=== PATIENT | female | born 1990 | race Caucasian/White ===

== ENCOUNTER 2018-02-04 09:11 | Day surgery (SDC) | payer OTHER ==
[2018-02-04 10:16] LABS: POTASSIUM 6.3 mmol/L (3.5-5.1)
[2018-02-04] MEDS ORDERED: FENTAnyl 50 MCG/ML VIAL (10:24)
[2018-02-04] MEDS ORDERED: LIDOCAINE 1% (MDV) 20 ML INJ (10:24)
[2018-02-04] MEDS ORDERED: HEPARIN 1000 UNITS/NS (A-LINE) 1,000 ML (10:24)
[2018-02-04] MEDS ORDERED: IODIXANOL LOCM 50 ML BTL ×2 (10:24→10:45)
[2018-02-04] MEDS ORDERED: MIDAZOLAM 1 MG/ML 2 ML INJ (10:24)
[2018-02-04 10:46] LABS: ADD MAN DIFF? NO
[2018-02-04 10:49] LABS: WHITE BLOOD COUNT 5.7 10^3/ul (4.8-10.8)
[2018-02-04 10:49] LABS: BASOPHIL # 0.1 10^3/ul (0.0-0.1); BASOPHILS % 0.9 % (0.0-2.0); EOSINOPHILS # 0.4 10^3/ul (0.0-0.5); EOSINOPHILS % 6.1 % (0.0-7.0); HEMATOCRIT 38.9 % (37.0-47.0); HEMOGLOBIN 12.2 g/dl (12.0-16.0); LYMPHOCYTES # 1.5 10^3/ul (0.8-2.9); LYMPHOCYTES % 25.6 % (15.0-51.0); MEAN CORPUSCULAR HEMOGLOBIN 33.8 pg (29.0-33.0); MEAN CORPUSCULAR HGB CONC 31.4 g/dl (32.0-37.0); MEAN CORPUSCULAR VOLUME 107.8 fl (82.0-101.0); MEAN PLATELET VOLUME 10.8 fl (7.4-10.4); MONOCYTE # 0.6 10^3/ul (0.3-0.9); MONOCYTES % 9.8 % (0.0-11.0); NEUTROPHIL # 3.3 10^3/ul (1.6-7.5); NEUTROPHILS % 57.4 % (39.0-77.0); PLATELET COUNT 208 10^3/UL (140-415); RED BLOOD COUNT 3.61 10^6/ul (4.20-5.40)
[2018-02-04 10:54] LABS: INR 0.94; PROTIME 12.7 Sec (11.9-14.9)
[2018-02-04 10:55] LABS: PARTIAL THROMBOPLASTIN TIME 32.6 Sec (25.0-35.0)
[2018-02-04 12:30] LABS: ANION GAP 25 (8-16); BLOOD UREA NITROGEN 61 mg/dl (7-20); CALCIUM 9.1 mg/dl (8.4-10.2); CARBON DIOXIDE 27 mmol/L (21-31); CHLORIDE 94 mmol/L (97-110); GLUCOSE 94 mg/dl (70-220); SODIUM 140 mmol/L (135-144)
[2018-02-04 12:41] LABS: POTASSIUM 6.3 mmol/L (3.5-5.1)
== END 2018-02-04 11:22 | disposition home or self-care (01) ==
LOC: CCL 09:11 → SDS 09:11 → CCL 11:22
DX: T82.848A Pain due to vascular prosthetic devices, implants and grafts, initial encounter (principal); Y84.1 Kidney dialysis as the cause of abnormal reaction of the patient, or of later complication, without mention of misadventure at the time of the procedure; I12.0 Hypertensive chronic kidney disease with stage 5 chronic kidney disease or end stage renal disease; N18.6 End stage renal disease
CPT/HCPCS: 36902; 80048; 84132; 84703; 85025; 85610; 85730

== ENCOUNTER 2018-11-30 09:23 | Day surgery (SDC) | payer OTHER ==
[2018-11-30 11:05] LABS: POTASSIUM 6.4 mmol/L (3.5-5.1)
[2018-11-30] MEDS ORDERED: HEPARIN 1000 UNITS/NS (A-LINE) 1,000 ML (14:34)
[2018-11-30] MEDS ORDERED: LIDOCAINE 1% (MDV) 20 ML INJ (14:34)
[2018-11-30] MEDS ORDERED: IODIXANOL LOCM 100 ML BTL (14:34)
== END 2018-11-30 15:40 | disposition home or self-care (01) ==
LOC: SDS 09:23
DX: T82.590D Other mechanical complication of surgically created arteriovenous fistula, subsequent encounter (principal); Y84.1 Kidney dialysis as the cause of abnormal reaction of the patient, or of later complication, without mention of misadventure at the time of the procedure; I12.0 Hypertensive chronic kidney disease with stage 5 chronic kidney disease or end stage renal disease; N18.6 End stage renal disease
CPT/HCPCS: 36902; 84132